=== PATIENT | male | born 1990 ===

== ENCOUNTER 2021-10-28 15:44 | Emergency (ER) | payer SELFPAY ==
[2021-10-28] MEDS ORDERED: PREDNISONE 20 M20 MG PO (18:25)
== END 2021-10-28 18:28 | disposition home or self-care (01) ==
LOC: ER1 15:44
DX: L50.0 Allergic urticaria (principal); F17.210 Nicotine dependence, cigarettes, uncomplicated
CPT/HCPCS: 99282; J2930